=== PATIENT | female | born 1945 | race Two or more races ===

== ENCOUNTER 2024-04-09 15:14 | Emergency (ER) | payer OTHER ==
[~2024-04-09] VITALS: Ht 152.4 cm; Wt 81.2 kg
[2024-04-09] MEDS ORDERED: CRESTOR40 MG PO (16:16)
[2024-04-09] MEDS ORDERED: IRBESARTAN-HCT1 EAC1 PO (16:17)
[2024-04-09] MEDS ORDERED: ASA81 MG PO (16:17)
[2024-04-09] MEDS ORDERED: NEURONTIN600 M1 PO (16:17)
[2024-04-09] MEDS ORDERED: COMBIGAN EYE DRO5 ML (16:19)
[2024-04-09] MEDS ORDERED: XELPROS2.5 ML (16:20)
[2024-04-09] MEDS ORDERED: 0.9 % SODIUM CHLORIDE 500 ML IV ONE (17:00)
[2024-04-09] MEDS ORDERED: ONDANSETRON HCL 2 MG/ML VIAL IV ONE (17:00)
[2024-04-09] MEDS ORDERED: FAMOTIDINE/PF 20 MG/2 ML VIAL IV ONE (17:00)
[2024-04-09] MEDS ORDERED: FAMOTIDINE/PF 20 MG/2 ML VIAL ONE (17:05)
[2024-04-09] MEDS ORDERED: ONDANSETRON HCL 2 MG/ML VIAL ONE (17:05)
[2024-04-09] MEDS ORDERED: LACTOBACILLUS ACIDOPHILUS 1 CAP CAP PO ONE ×2 (17:05→17:15)
[2024-04-09 17:34] LABS: HEMATOCRIT 35.9 % (36.0-45.00); HEMOGLOBIN 11.9 g/dL (12.0-15.00); MEAN CELL VOLUME 89.9 fL (80.00-100.00); MEAN CORPUSCULAR HEMOGLOBIN 29.8 pg (27.00-32.0); MEAN CORPUSCULAR HGB CONC 33.2 g/dl (32.0-36.0); PLATELET COUNT 276 K/uL (150-450); RED BLOOD COUNT 3.99 M/uL (4.00-6.00); RED CELL DISTRIBUTION WIDTH 14.8 % (11.5-14.5)
[2024-04-09 17:54] LABS: URINE APPEARANCE Clear; URINE BILIRRUBIN Negative (NEGATIVE); URINE BLOOD Large; URINE COLOR Yellow; URINE GLUCOSE Negative (NEGATIVE); URINE KETONE Negative (NEGATIVE); URINE LEUKOCYTE Trace; URINE NITRATE Negative; URINE PROTEIN Negative (NEGATIVE); URINE UROBILINOGEN 0.2 E.U./dl
[2024-04-09 18:15] LABS: URINE BACTERIA 58.7 uL (0.0-1933); URINE EPITHELIAL CELLS 11.7 uL (0.0-38.8); URINE RBC 144.7 uL (0.0-20.8); URINE WBC 9.4 uL (0.0-23.2)
[2024-04-09 18:16] LABS: URINE CAST 1.03 uL (0.0-1.40)
[2024-04-09 18:55] LABS: ALBUMIN 3.8 gm/dL (3.4-5.0); BILIRUBIN TOTAL 0.68 mg/dL (0.3-1.2); CALCIUM 9.4 mg/dL (8.5-10.1); CREATININE SERUM 1.19 mg/dL (0.55-1.02); GFR 43.98; GLOBULINA 4.6 G/DL (2.4-3.5); POTASSIUM 3.74 mEq/L (3.5-5.1); TOTAL PROTEIN 8.4 gm/dL (6.4-8.2)
[2024-04-09] MEDS ORDERED: INTESTINEX680 M1 PO (19:37)
[2024-04-09] MEDS ORDERED: ONDANSETRON ODT8 MG PO (19:37)
[2024-04-09] MEDS ORDERED: PEPCID AC20 MG PO (19:37)
[2024-04-09] MEDS ORDERED: LEVSIN/SL0.125 MG SL (19:37)
== END 2024-04-09 20:00 ==
LOC: ER 15:17
PROVIDERS: Emergency Medicine; General Practice
DX: K52.9 Noninfective gastroenteritis and colitis, unspecified (principal); R11.10 Vomiting, unspecified; I10 Essential (primary) hypertension; Z88.6 Allergy status to analgesic agent
CPT/HCPCS: 36415; 96365; 96366; 99282; J7030

== ENCOUNTER → 2024-05-18 09:59 | Outpatient (CLI) | payer OTHER ==
[~2024-05-18 09:59] MED LIST: ASA81 MG PO; COMBIGAN EYE DRO5 ML; CRESTOR40 MG PO; INTESTINEX680 M1 PO; IRBESARTAN-HCT1 EAC1 PO; LEVSIN/SL0.125 MG SL; NEURONTIN600 M1 PO; ONDANSETRON ODT8 MG PO; PEPCID AC20 MG PO; XELPROS2.5 ML
[2024-05-18 12:10] LABS: CREATININE SERUM 1.11 mg/dL (0.55-1.02)
== END | disposition home or self-care (01) ==
LOC: LAB 09:59
PROVIDERS: ATTEND Radiology Diagnostic Radiology
DX: I65.21 Occlusion and stenosis of right carotid artery (principal)